=== PATIENT | male | born 1960 | race Caucasian/White ===

== ENCOUNTER 2017-02-22 11:34 | Inpatient (IN) | payer MEDICARE ==
[~2017-02-22] VITALS: Ht 177.8 cm; Wt 87.3 kg
[2017-02-22] MEDS: IV NORMAL SALINE 1,000ML 1,000 ML IV SCH ×3 (11:47→19:53)
[2017-02-22] MEDS ORDERED: IV NORMAL SALINE 1,000ML 1,000 ML ONE (11:49)
--- NOTE | 2017-02-22 11:59 | PHYS DOC ---
General Chief Complaint: FEVER Stated Complaint: FEVER, GENERAL BODYACHES Time Seen by MD: 11:47 Source: patient, [facility] Exam Limitations: no limitations Problems: History of Present Illness Initial Comments Pt is 56/M to ED for fever/myalgias. Pt sent EMS from [facility] for myalgias and fever which apparently began this am. Pt has h/o metastatic colon cancer/melanoma, h/o craniotomy s/p subdural hematoma. Pt complains of "whole body pain", his pain med regimen recently cut in half, no cough/sob/n/v or other focal complaints. Pt cries out in pain each time you touch him, especially the LUE (shoulder films pending). No H/P or med list to ED with pt, very little known of him records requested from [facility]. Tachycardic (120's) and febrile 101.9 on arrival, other VSS. No prearrival treatment. Timing/Duration: 1 hour Severity: moderate Modifying Factors: improves with other Associated Symptoms: fever/chills, other Allergies: Coded Allergies: adhesive tape (Verified Allergy, Unknown, 02/22/17) ampicillin (Verified Allergy, Unknown, 02/22/17) atorvastatin (Verified Allergy, Unknown, 02/22/17) cephalexin (Verified Allergy, Unknown, 02/22/17) fentanyl (Verified Allergy, Unknown, 02/22/17) latex (Verified Allergy, Unknown, 02/22/17) Past Medical History Medical History: other (malignant melanoma scalp stage IV, COPD, RACHAEL, s/p traumatic BKA, Stage III colon CA, chronic left elbow pain, PVD, subdural hematoma s/p craniotomy, chronic back pain, pseudogout left elbow) Surgical History: other (traumatic L BKA, appy, back surgery x 3, right hallux amputation) Social History Smoker: cigarettes, less than 1 pack/day Alcohol: occasionally Drugs: none Review of Systems Constitutional: see HPI Respiratory: denies cough, denies shortness of breath, denies wheezing Cardiovascular: denies chest pain, denies palpitations, denies syncope Gastrointestinal: denies abdominal pain, denies diarrhea, denies nausea, denies vomiting Musculoskeletal: see HPI, denies joint swelling, denies muscle stiffness Psychiatric/Neurological: denies headache, denies numbness, denies paresthesia , denies weakness Physical Exam General Appearance: WD/WN, mild distress Eyes: bilateral eye normal inspection, bilateral eye PERRL, bilateral eye EOMI Ear, Nose, Throat: hearing grossly normal, normal ENT inspection, normal pharynx Neck: non-tender, supple Respiratory: chest non-tender, other (coarse BS b/l no resp distress) Cardiovascular: normal peripheral pulses, tachycardia Gastrointestinal: soft (ND, BS diminished no focal TTP or distension) Back: no CVA tenderness, no vertebral tenderness Extremities: other (L BKA, R hallux amputations, no active skin infections, L elbow TTP and swelling no erythema/warmth or pain with passive ROM) 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 PHYSICIAN: DARRELL CARDENAS DO REASON: pain PROCEDURE: SHOULDER 2+V LEFT Left shoulder, 3 views, 02/22/2017: History: Left shoulder pain No acute fracture or dislocation is identified. There are mild degenerative changes at the acromioclavicular joint. There is a tiny soft tissue calcification at that level. IMPRESSION: 1. Mild degenerative change at the left AC joint. 2. No acute bony abnormality is detected. DICTATED AND SIGNED BY: ANN MARIE NORTON MD DATE: 02/22/171224 CC: DARRELL CARDENAS DO ~ PATIENT: ANDREA MONTILLA ACCOUNT: [id number] : 1960 LOCATION: ER AGE: 56 SEX: M EXAM STATUS: PRE ER ORD. PHYSICIAN: DARRELL CARDENAS DO REASON: fever PROCEDURE: PORTABLE CHEST 1V Portable chest, 02/22/2017: History: Fever, bodyaches No previous chest radiographs are available at this time for comparison purposes. A right Port-A-Cath extends into the superior vena cava. The heart size and pulmonary vascularity are normal. No pulmonary infiltrate is seen. There is no evidence of pleural fluid. Mild spurring is present in the spine. Periarticular calcifications adjacent to the distal right clavicle are probably secondary to old trauma. IMPRESSION: Normal 1. A Port-A-Cath is in place in satisfactory position. 2. No acute cardiopulmonary abnormality is detected. DICTATED AND SIGNED BY: ANN MARIE NORTON MD DATE: 02/22/17 1223 CC: DARRELL CARDENAS DO ~ PATIENT: ANDREA MONTILLA ACCOUNT: [id number] : 1960 LOCATION: ER AGE: 56 SEX: M EXAM STATUS: REG ER ORD. PHYSICIAN: DARRELL CARDENAS DO REASON: pain/swelling PROCEDURE: ELBOW BILAT 2V Bilateral elbows, 02/22/2017: History: Pain The exam is compromised by poor patient positioning related to the patient's inability to cooperate. There are degenerative changes at the right elbow joint. There appear to be small loose bodies in the joint anteriorly. No acute right elbow fracture or dislocation is evident. There is marked deformity of the the left elbow. This appears to represent an old nonunited fracture of the distal humerus. A distal humeral fracture involving the capitellum articulates with the radial head. It is displaced relative to the remainder of the distal humerus which partially articulates with the proximal ulna. The appearance is that of an old fracture/dislocation. There is also mild deformity of the radial head with spurring. No acute fracture is seen. IMPRESSION: 1. Suboptimal exam. 2. 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 3. Degenerative change at the right elbow joint with small loose bodies in the joint. DICTATED AND SIGNED BY: ANN MARIE NORTON MD DATE: 02/22/17 1647 CC: CAROLYNE PARR MD; DARRELL CARDENAS DO ~ 1658: Awaiting H/P fax from [place], prolonged ED course. d-dimer 3.76 (mets), INR 1.2, glu 68, t. bili 1.9, albumin 2.6, UA 80 ket, rapid strep and influenza A/B negative. Fever resolved with tylenol x 1, vancomycin IV and NS boluses given. HR persistently elevated despite hydration. Pt denies new or progressive symptoms thru ED course. Records from [facility] reviewed. Functional IV for meds established, all attempts to establish line for CTA result in blown vessel. I discussed pt with Dr Espinosa who requests meropenem added to vanco, additionally requests echo/dopplers. IMPRESSIONS: Febrile Illness NOS Metastatic Disease Sinus tachycardia (sepsis ruled out, need to r/o PE) Departure Disposition: ADMITTED INPATIENT Diagnosis: febrile illness, metastatic disease, Condition: GUARDED Additional Instructions: Telemetry admission Dr Espinosa is accepting. DARRELL CARDENAS DO February 22, 2017 11:59
[2017-02-22] MEDS ORDERED: PIPERACILLIN/TAZOBACTAM 4.5 GM in IV NORMAL SALINE 50ML 50 ML IV ONE (12:00)
[2017-02-22] MEDS ORDERED: 0.9 % SODIUM CHLORIDE 10 ML DISP.SYRIN. IV PRN (12:00)
[2017-02-22] MEDS ORDERED: ACETAMINOPHEN 500 MG TABLET PO ONE (12:25)
[2017-02-22] MEDS: MORPHINE SULFATE 4 MG/ML DISP.SYRIN. IV/SQ PRN ×3 (12:27→17:22)
--- NOTE | 2017-02-22 12:27 | RAD ---
Portable chest, 02/22/2017: History: Fever, bodyaches No previous chest radiographs are available at this time for comparison purposes. A right Port-A-Cath extends into the superior vena cava. The heart size and pulmonary vascularity are normal. No pulmonary infiltrate is seen. There is no evidence of pleural fluid. Mild spurring is present in the spine. Periarticular calcifications adjacent to the distal right clavicle are probably secondary to old trauma. IMPRESSION: Normal 1. A Port-A-Cath is in place in satisfactory position. 2. No acute cardiopulmonary abnormality is detected.
--- NOTE | 2017-02-22 12:28 | RAD ---
Left shoulder, 3 views, 02/22/2017: History: Left shoulder pain No acute fracture or dislocation is identified. There are mild degenerative changes at the acromioclavicular joint. There is a tiny soft tissue calcification at that level. IMPRESSION: 1. Mild degenerative change at the left AC joint. 2. No acute bony abnormality is detected.
[2017-02-22 12:29] LABS: BASO # 0.1 x10^3/uL (0.0-0.2); BASO % 1 % (0-3); EOS # 0.1 x10^3/uL (0.0-0.7); EOS % 1 % (0-3); HEMATOCRIT 40.8 % (39.0-53.0); HEMOGLOBIN 13.9 g/dL (13.0-17.5); LYMPH # 1.5 x10^3/uL (1.0-4.8); LYMPH % 18 % (24-48); MEAN CORPUSCULAR HEMOGLOBIN 32 pg (25-35); MEAN CORPUSCULAR HGB CONC 34 g/dL (31-37); MEAN CORPUSCULAR VOLUME 93 fL (79-100); MONO # 1.4 x10^3/uL (0.0-1.1); MONO % 16 % (0-9); NEUT # 5.5 x10^3uL (1.8-7.7); NEUT % 65 % (31-73); PLATELET COUNT 348 x10^3/uL (140-400); RED BLOOD COUNT 4.39 x10^6/uL (4.30-5.70); RED CELL DISTRIBUTION WIDTH 14.5 % (11.5-14.5); WHITE BLOOD COUNT 8.5 x10^3/uL (4.0-11.0)
[2017-02-22] MEDS ORDERED: NOREPINEPHRINE BITARTRATE 8 MG in IV DEXTROSE 5% 250 ML IV PRN (12:30)
[2017-02-22 12:46] LABS: ALBUMIN 2.6 g/dL (3.4-5.0); ALBUMIN/GLOBULIN RATIO 0.5 (1.0-1.7); CALCIUM 9.7 mg/dL (8.5-10.1); CREATININE 0.9 mg/dL (0.7-1.3); GFR 86.7; POTASSIUM 4.4 mmol/L (3.5-5.1); TOTAL BILIRUBIN 1.9 mg/dL (0.2-1.0); TOTAL PROTEIN 7.5 g/dL (6.4-8.2)
[2017-02-22] MEDS: VANCOMYCIN PER PHARMACY MC PRN ×2 (12:46→20:02)
[2017-02-22] MEDS ORDERED: VANCOMYCIN 2 GM in IV NORMAL SALINE 500ML 500 ML IV ONE (13:00)
--- NOTE | 2017-02-22 13:56 | EKG ---
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
[2017-02-22 13:57] LABS: AMORPHOUS SEDIMENT,UR PRESENT /HPF; BACTERIA,URINE 0 /HPF (0-FEW); BILIRUBIN,URINE SMALL (NEG); CLARITY,URINE CLEAR; COLOR,URINE YELLOW; GLUCOSE,URINE NEG (NEG); HYALINE CASTS, URINE MOD /HPF; NITRITE,URINE NEG (NEG); RBC,URINE 0 /HPF (0-2); SQUAMOUS EPITHELIAL CELL,UR OCC /LPF; UROBILINOGEN,URINE 1 mg/dL (0.2 mg/dL); WBC,URINE RARE /HPF (0-4)
[2017-02-22 14:02] LABS: INFLUENZA A PATIENT NEGATIVE (NEGATIVE); INFLUENZA B PATIENT NEGATIVE (NEGATIVE)
[2017-02-22] MEDS ORDERED: CONTRAST GIVEN MC PRN (14:15)
[2017-02-22] MEDS ORDERED: IOHEXOL 300 MG/ML 75 ML VIAL. IV ONE (14:15)
--- NOTE | 2017-02-22 15:53 | RAD ---
Indication change in mental status. History of prostate malignancy. Noncontrast images of the head were obtained. No prior imaging of the head is available. No acute calvarial finding is seen. Changes of a right craniotomy are noted. The visualized paranasal sinuses appear unremarkable. There is no subdural or epidural hematoma. Ventricles and sulci are within normal limits. There is no mass or midline shift. No hemorrhage is seen. No acute intracranial finding is apparent. There is a small lucency, probably reflecting microvascular disease, in the left deep white matter just adjacent to the anterior horn of the lateral ventricle. IMPRESSION: No acute or significant finding seen on noncontrast CT images of the head PQRS Compliance Statement: One or more of the following individualized dose reduction techniques were utilized for this examination: 1. Automated exposure control 2. Adjustment of the mA and/or kV according to patient size 3. Use of iterative reconstruction technique
--- NOTE | 2017-02-22 16:54 | RAD ---
Bilateral elbows, 02/22/2017: History: Pain The exam is compromised by poor patient positioning related to the patient's inability to cooperate. There are degenerative changes at the right elbow joint. There appear to be small loose bodies in the joint anteriorly. No acute right elbow fracture or dislocation is evident. There is marked deformity of the the left elbow. This appears to represent an old nonunited fracture of the distal humerus. A distal humeral fracture involving the capitellum articulates with the radial head. It is displaced relative to the remainder of the distal humerus which partially articulates with the proximal ulna. The appearance is that of an old fracture/dislocation. There is also mild deformity of the radial head with spurring. No acute fracture is seen. IMPRESSION: 1. Suboptimal exam. 2. 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 3. Degenerative change at the right elbow joint with small loose bodies in the joint.
[2017-02-22] MEDS ORDERED: IV NORMAL SALINE 1,000ML 1,000 ML IV SCH ×2 (17:00→18:00)
[2017-02-22] MEDS ORDERED: ACETAMINOPHEN 325 MG TABLET PO PRN ×2 (17:45→18:45)
[2017-02-22] MEDS ORDERED: ONDANSETRON PF 4 MG/2 ML VIAL. IV PRN ×2 (17:45→18:45)
[2017-02-22] MEDS ORDERED: IV NORMAL SALINE 250ML 250 ML ONE (18:57)
--- NOTE | 2017-02-22 19:09 | ACF ---
Admission Criteria Forms TELEMETRY CARE Telemetry Admission Guidelines (Place 'X' for any and all applicable criteria): Admission to telemetry [A] may be indicated for ANY ONE of the following(1)(2)(3 )(4)(5): [X]I. Cardiac disease, including ANY ONE of the following (9)(10)(11)(12)(13 ): [ ]a) Postacute VA [ ]b) Low-risk patients with ST-segment elevation VA who have undergone successful percutaneous coronary intervention [ ]c) Unstable angina [ ]d) Suspected VA (until it is ruled out) [ ]e) Post cardiac surgery (first 48 to 72 hours unless complications occur) [X]f) Acute arrhythmias (including significant tachycardia or bradycardia) [B] [ ]g) Firing of an implantable cardioverter defibrillator [C] [ ]h) Suspected pacemaker or implantable cardioverter defibrillator malfunction (10) [ ]i) New administration or adjustment of an antiarrhythmic drug [D ] [ ]j) Child admitted for acute congestive heart failure [ ]j) Long QT syndrome [ ]k) Advanced heart block (eg, second-degree Mobitz type II, third- degree heart block) [ ]l) Acute myocarditis or pericarditis [ ]m) Short-term (ambulatory or inpatient) monitoring after a cardiac procedure as indicated by ANY ONE of the following [E]: [ ]i) Electrophysiologic studies [ ]ii) Percutaneous coronary intervention with stent placement [ ]iii) Pacemaker placement with cardiac conduction defect [ ]iv) Implantable cardiac defibrillator placement [ ]II. Drug overdose or poisoning with substance that causes arrhythmias or QT prolongation (eg, phenothiazines, sympathomimetic agents, cyclic antidepressants, digitalis, antiarrhythmic drugs)(15) [ ]III. Short-term (ambulatory or inpatient) monitoring after therapeutic or diagnostic procedure requiring conscious sedation or anesthesia (eg, endoscopy, elective cardioversion) [ ]IV. Acute cerebrovascular even[F](18) [ ]V. Massive blood transfusion (eg, at least 10 units of packed red blood cells in 24 hours) [ ]. Variceal bleeding after endoscopy, sclerotherapy, or IV vasopressin [ ]VII. Uncorrected electrolyte abnormalities associated with an increased risk of dangerous arrhythmia [G]; examples include [ ]a) Hyperkalemia with attributable ECG changes [ ]b) Potassium greater than 6.5 mmol/L (mEq/L) in a patient without history of chronic renal disease [ ]c) Prolonged QT attributed to hypokalemia, hypomagnesemia, or hypocalcemia [ ]VIII.Unexplained syncope or other neurologic event suspected of being due to arrhythmia due to a finding that increases risk; examples include(19)(20)(21): [ ]a) High-risk ECG findings (eg, bifascicular block, bradycardia, abnormal QT interval, ventricular pre- excitation) [ ]b) History of previous syncope due to arrhythmia [ ]c) Abnormal ventricular function (eg, reduced ejection fraction ) [ ]d) Exertional or supine syncope [ ]e) Concerning syncope characteristics (eg, sudden loss of consciousness without prodrome) [ ]f) Family history of sudden [ ]g) Use of arrhythmogenic medication [ ]h) Suspected cardiac ischemia [ ]i) Known channelopathy (eg, long QT syndrome, Brugada syndrome, or catecholaminergic paroxysmal ventricular tachycardia) [ ]j) Known structural heart disease (eg, hypertrophic cardiomyopathy , severe valvular disease) [ ]k) Palpitations preceding syncope The original [employer] content created by [employer] has been revised. The portions of the content which have been revised are identified through the use of italic text or in bold, and [employer] has neither reviewed nor approved the modified material. All other unmodified content is copyright [employer]. Please see references footnoted in the original [employer] edition 2016 Admission Criteria Met?: Yes PASCUAL MARTINEZ February 22, 2017 19:09
[2017-02-22 19:39] VITALS: BP 114/61
--- NOTE | 2017-02-22 20:02 | NUR ---
Pharmacy Vancomycin Dosing Note S:Consulted to monitor and dose vancomycin started 02/22/17. O:ANDREA MONTILLA is a 56 year old M with Sepsis . Height: 5 feet, 10 inches Weight: 87.604225 kg [place] Body Weight: Adjusted Body Weight: Dosing Weight: Actual Other Antibiotics: MEROPENEM 1GRAM Q8HRS LABS: Last BUN: 14 Last Creatinine: 0.9 Creatinine Clearance: Last WBC: 8.5 Last Platelets: 348 Tmax (past 24 hours): Microbiology: I/O: Drug Levels: Last level: on at Last dose given 02/22/17 at 1300 Vancomycin Dosing: Loading Dose: 2000 mg x1 Dosing Weight: Actual Target Trough: 15-20 A: Based on: P: 1. Begin Vancomycin 1500 mg IV q12h 2. Follow up Trough level on 02/24/17 at 0030 3. Pharmacy will continue to monitor, follow and adjust therapy as needed. RAQUEL PRICE RPH, 02/22/172001
[2017-02-22] MEDS: IPRATRPIUM/ALBUTEROL 0.5/2.5MG 3 ML NEBU. NEB SCH (20:27)
[2017-02-22 20:55] VITALS: BP 107/65
[2017-02-22 21:55] VITALS: BP 121/64
[2017-02-22] MEDS: MEROPENEM 1 GM in IV NORMAL SALINE 100ML 100 ML IV SCH (22:41)
[2017-02-22 22:55] VITALS: BP 125/64
[2017-02-22] MEDS ORDERED: CHOL500016 PO (23:26)
[2017-02-22] MEDS ORDERED: FURO-69 PO (23:26)
[2017-02-22] MEDS ORDERED: DOCU-109 PO (23:26)
[2017-02-22] MEDS ORDERED: BUPR100T8 PO (23:26)
[2017-02-22] MEDS ORDERED: GABA-586 PO (23:26)
[2017-02-22] MEDS ORDERED: DOCUSATE SODIUM 100 MG CAPSULE PO PRN (23:30)
--- NOTE | 2017-02-22 23:36 | NUR ---
The patient, ANDREA MONTILLA, 56 y/o, M admitted by RAMY GARCIA MD, was given written information regarding hospital policies, unit procedures and contact persons. No valuables noted upon arrival to unit. Pt is calm and cooperative with staff, sleeping on and off but is able to answer some questions. Pt alert to self and situation. VSS at this time, placed on 2L NC due to O2 sats in low 90s. HR elevated in 115s. NS and ABT therapy ordered. Obtained blood cultures and access right chest port per Dr. Garcia. Port patent and flushed with 20cc of NS, good blood return noted. Denies complaints of pain or discomfort when asked, noted to yell out in pain when repositioning. Pt has Left elbow dislocation and possible cellulitis/septic bursitis per records from [facility]. Pt resting comfortably at this time, will continue to monitor.
[2017-02-22 23:55] VITALS: BP 135/77
[2017-02-23] VITALS (9 sets, daily range): BP systolic 104–147; BP diastolic 52–78
[2017-02-23] MEDS: MORPHINE SULFATE 2 MG/ML DISP.SYRIN. IV PRN ×4 (01:01→14:17)
[2017-02-23] MEDS: VANCOMYCIN 1.5 GM in IV NORMAL SALINE 500ML 500 ML IV SCH ×2 (01:03→13:20)
[2017-02-23] MEDS: IV NORMAL SALINE 1,000ML 1,000 ML IV SCH ×2 (01:03→09:05)
[2017-02-23] MEDS: MEROPENEM 1 GM in IV NORMAL SALINE 100ML 100 ML IV SCH ×2 (05:22→13:19)
--- NOTE | 2017-02-23 06:03 | NUR ---
Pt incontinent of urine, attempted to place sanchez catheter x3. Pt was in pain and requested to not have placement.
[2017-02-23] MEDS: IPRATRPIUM/ALBUTEROL 0.5/2.5MG 3 ML NEBU. NEB SCH ×2 (06:04→11:30)
[2017-02-23 06:20] LABS: BASO % 0 % (0-3); EOS # 0.1 x10^3/uL (0.0-0.7); EOS % 2 % (0-3); HEMATOCRIT 33.3 % (39.0-53.0); HEMOGLOBIN 11.3 g/dL (13.0-17.5); LYMPH % 14 % (24-48); MEAN CORPUSCULAR HEMOGLOBIN 32 pg (25-35); MEAN CORPUSCULAR HGB CONC 34 g/dL (31-37); MEAN CORPUSCULAR VOLUME 95 fL (79-100); MONO # 1.2 x10^3/uL (0.0-1.1); MONO % 17 % (0-9); NEUT # 4.6 x10^3uL (1.8-7.7); NEUT % 67 % (31-73); PLATELET COUNT 279 x10^3/uL (140-400); RED BLOOD COUNT 3.51 x10^6/uL (4.30-5.70); RED CELL DISTRIBUTION WIDTH 14.1 % (11.5-14.5); WHITE BLOOD COUNT 6.9 x10^3/uL (4.0-11.0)
[2017-02-23 06:32] LABS: ALBUMIN 2.1 g/dL (3.4-5.0); ALBUMIN/GLOBULIN RATIO 0.5 (1.0-1.7); CALCIUM 8.9 mg/dL (8.5-10.1); CREATININE 0.8 mg/dL (0.7-1.3); GFR 99.3; POTASSIUM 4.1 mmol/L (3.5-5.1); TOTAL BILIRUBIN 1.3 mg/dL (0.2-1.0); TOTAL PROTEIN 6.3 g/dL (6.4-8.2)
[2017-02-23] MEDS: buPROPion SR 100 MG TABLET.SA. PO SCH ×2 (08:32→13:19)
[2017-02-23] MEDS: GABAPENTIN 300 MG CAPSULE. PO SCH ×2 (08:32→13:19)
--- NOTE | 2017-02-23 08:40 | RAD ---
Indication shortness of breath. Elevated d-dimer. Contrast imaging through the chest was performed. The examination was to be tailored for the detection of pulmonary embolus. 75 cc of Omnipaque 300 was administered intravenously. MIP images were generated and reviewed. No prior CT imaging of the chest is available. The examination evaluating for pulmonary embolus is compromised. There is not optimal opacification of the pulmonary arteries and there is moderate respiratory motion. No definite pulmonary emboli are seen and certainly large central pulmonary emboli are not suggested on this study. Assessment of lobar, segmental and subsegmental branches for pulmonary emboli is very limited secondary to factors outlined above. There is generalized soft tissue swelling suggesting a systemic process such as anasarca. Significant hilar or mediastinal adenopathy is not seen. There is a dominant nodule measuring approximately 2 cm in greatest dimension associated with the left lobe of the thyroid. This could be further evaluated with ultrasound. An acute parenchymal infiltrate in either lung is not seen. There is a slightly irregular 1.3 cm nodule in the left upper lobe. Etiology is unclear. Primary malignancy is certainly not excluded accounting for the finding. Comparison with any old CT examinations, if available, should be considered. In the absence of prior CT examinations being available PET scanning or CT guided biopsy should be considered. Imaging through the upper abdomen is unremarkable. IMPRESSION: Limited study evaluating for pulmonary embolus. No large central pulmonary emboli seen. 1.3 cm soft tissue mass in the left upper lobe. The etiology is unclear. See above discussion. 2 cm nodule in the left lobe of the thyroid. Thyroid ultrasound should be considered. PQRS Compliance Statement: One or more of the following individualized dose reduction techniques were utilized for this examination: 1. Automated exposure control 2. Adjustment of the mA and/or kV according to patient size 3. Use of iterative reconstruction technique
[2017-02-23] MEDS ORDERED: FUROSEMIDE 20 MG TABLET PO SCH (09:00)
--- NOTE | 2017-02-23 13:03 | RAD ---
Indication elevated d-dimer. Grayscale color Doppler and spectral imaging was performed. Examination was targeted to the veins of the right lower extremity. The common femoral, femoral and popliteal vessels demonstrate normal flow compressibility and augmentation. No thrombus was seen. The visualized right calf veins appeared normal. The left common femoral vein appeared normal. IMPRESSION: Negative right lower extremity venous analysis for DVT
--- NOTE | 2017-02-23 13:48 | CARD ---
APPROVED REPORT EXAM: Two-dimensional and M-mode echocardiogram with Doppler and color Doppler. Other Information Quality : Good INDICATION Fever 2D DIMENSIONS Left Atrium(2D)3.7 (1.6-4.0cm)IVSd1.3 (0.7-1.1cm) Aortic Root(2D)2.8 (2.0-3.7cm)LVDd4.5 (3.9-5.9cm) LVOT Diameter2.3 (1.8-2.4cm)PWd1.1 (0.7-1.1cm) LVDs2.6 (2.5-4.0cm)FS (%) 30.0 % SV68.9 mlLVEF(%)60.0 (>50%) Aortic Valve AoV Peak Jerod.183.8cm/Nasima Peak GR.13.5mmHg LVOT Peak Jerod.163.1cm/sAVA (VMAX)3.82cm2 Mitral Valve MV E Gunljqvj82.8cm/sMV DECEL SAAB11cr MV A Xjgiwpir76.2cm/sE/A Ratio0.9 LEFT VENTRICLE The left ventricle is normal size. There is mild concentric left ventricular hypertrophy. The left ve ntricular systolic function is normal and the ejection fraction is within normal range. The Ejection Fraction is 60-65%. There is normal LV segmental wall motion. Transmitral Doppler flow pattern is Gra de I-abnormal relaxation pattern. RIGHT VENTRICLE The right ventricle is normal size. The right ventricular systolic function is normal. ATRIA The left atrium size is normal. The right atrium size is normal. The interatrial septum is intact wit h no evidence for an atrial septal defect or patent foramen ovale as noted on 2-D or Doppler imaging. AORTIC VALVE The aortic valve is normal in structure and function. Doppler and Color Flow revealed no significant aortic regurgitation. There is no significant aortic valvular stenosis. There is no aortic valvular v egetation. MITRAL VALVE The mitral valve is normal in structure and function. There is no evidence of mitral valve prolapse. There is no mitral valve stenosis. Doppler and Color Flow revealed no mitral valve regurgitation note d. TRICUSPID VALVE The tricuspid valve is normal in structure and function. Doppler and Color Flow revealed no tricuspid valve regurgitation noted. There is no tricuspid valve stenosis. PULMONIC VALVE Doppler and Color Flow revealed no pulmonic valvular regurgitation. There is no pulmonic valvular gucci nosis. GREAT VESSELS The aortic root is normal in size. The ascending aorta is not well seen. The IVC is normal in size an d collapses >50% with inspiration. PERICARDIAL EFFUSION There is no evidence of significant pericardial effusion. Critical Notification Critical Value: No <Conclusion> The left ventricular systolic function is normal and the ejection fraction is within normal range. Th e Ejection Fraction is 60-65%. There is normal LV segmental wall motion. Technically difficult study No clear valvular lesions noted.
--- NOTE | 2017-02-23 14:00 | NUR ---
PT transferring to .Waiting to give report to at this time. Marta notified. Mike WYNN
--- NOTE | 2017-02-23 14:47 | NUR ---
PT dc to [facility]. gave report to KINGSLEY maxwell verbalize understanding of transfer. PT left via [facility] via EMS. pillo WYNN
--- NOTE | 2017-02-23 19:10 | HP ---
ADMIT DATE: 02/22/2017 HISTORY OF PRESENT ILLNESS: This is a 56-year-old male patient, a resident at [facility], who was brought to the Emergency Room with a complaint of fever and generalized aches and pains and myalgias. He is crying out of pain each time he is touched, particularly his left upper extremity, mainly his shoulder. On arrival to the Emergency Room, he apparently was found to be febrile, although extensive investigation failed to reveal any focus of infection. His white cell count was normal. Chest x-ray was unremarkable and he is known to have a Port-A-Cath, so he was admitted for possible line-related sepsis versus left shoulder septic arthritis. He was somewhat hypotensive in the Emergency Room and was given about 3 liters of fluid and continued on IV fluids on arrival to the ICU. He was pancultured and started on empiric antibiotic in the form of vancomycin as well as meropenem as he is allergic to penicillin. PAST MEDICAL HISTORY: Significant for stage 4 malignant melanoma diagnosed of the scalp and has been receiving chemotherapy for that. He has also stage 3 colon cancer, chronic obstructive pulmonary disease, obstructive sleep apnea. He is status post traumatic [id number] amputation. He has chronic left elbow pain, peripheral vascular disease, subdural hematoma, status post craniotomy, he has chronic back pain, and pseudogout on the left elbow. PAST SURGICAL HISTORY: He has traumatic [id number] amputation, appendectomy, back surgery x 3 and right hallux amputation. FAMILY HISTORY: Unremarkable. SOCIAL HISTORY: He is a resident at [facility]. He smokes at least 1 pack a day. He drinks alcohol occasionally. He does not use any drugs. REVIEW OF SYSTEMS: As per history of present illness, his complaint is mainly generalized aches and pains, in particular in his left shoulder and he was febrile ALLERGIES: He is allergic to ADHESIVE TAPE, AMPICILLIN, ATORVASTATIN, CEPHALEXIN, FENTANYL, and LATEX. MEDICATIONS: He was on the following medications: He is on Wellbutrin 100 mg 3 times a day, cholecalciferol, vitamin D 10,000 international units p.o. weekly. He is on Colace 200 mg once a day, furosemide 20 mg once a day, gabapentin 300 mg 3 times a day. PHYSICAL EXAMINATION: GENERAL: On arrival to the Emergency Room, he was somewhat pale, but no jaundice, cyanosis, or thyromegaly. No jugular venous distension. No lower limb edema. VITAL SIGNS: His heart rate was 121, blood pressure was 95/60, temperature was 102, respiratory rate was 22 and oxygen saturation was 91% on room air. HEAD, EYES, EARS, NOSE AND THROAT: Showed normocephalic, atraumatic. NECK: Supple. HEART: Showed normal first and second heart sounds with no gallop, rub or murmur. CHEST: Clear to auscultation. No crepitation or rhonchi. ABDOMEN: Distended, soft, nontender. No guarding or rigidity. No organomegaly. All hernial orifices are intact. Bowel sounds are normal. NEUROLOGIC: He is awake, alert, responding appropriately. Cranial nerves are intact. EXTREMITIES: He moves all extremities without difficulty. He is mostly bedbound, chair bound. He has [id number] amputation. LABORATORY DATA: On initial evaluation showed that his white cell count was 8500, hemoglobin 13.9, hematocrit 40, MCV 93, and platelet count of 348,000 with a manual differential showed 65% polymorphs, 18% lymphocytes, and 16% monocytes. His sedimentation rate was high at 117 mm per hour. His chemistry showed a serum sodium of 134, potassium 4.4, chloride 95, bicarbonate 25, anion gap of 14, BUN 14, creatinine 0.9, estimated GFR was 86 mL per minute. His glucose was 68, calcium was 9.7. Total bilirubin was 1.9. AST, ALT, alkaline phosphatase were normal. His CK was only 53, total protein was 7.5, albumin 2.6. Lipase was 85. His prothrombin time was 12.5, INR of 1.2, APTT 31 and D-dimer was 3.76. Urinalysis was essentially unremarkable. The urine was yellow, clear with a pH of 5, specific gravity of 1.015. The urine was negative for protein and glucose. There was trace of ketones, trace of blood, negative for nitrite and negative for leukocyte esterase. There was 0 WBCs, 0 RBCs and no bacteria. His influenza A and B were negative and his rapid group A Streptococcus antigens were negative. IMAGING: He had multiple images including a chest x-ray, which showed that his Port-A-Cath is in place in satisfactory position, no acute cardiopulmonary abnormalities detected. His right shoulder x-ray showed that he has mild degenerative changes of the left acromioclavicular joint. No acute bony abnormalities detected. CT scan of the head also showed no acute or significant findings seen on this noncontrast CT images of the head. 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 Given that his D-dimer was high, he underwent CT angiography of the chest, which showed a limited study evaluating for pulmonary embolism. There were no large central pulmonary emboli seen. There was 1.3 cm soft tissue mass in the left upper lobe, the etiology is unclear. He has 2 cm nodule in the left lobe of the thyroid gland. ASSESSMENT AND PLAN: The patient was admitted to the ICU, was continued with IV fluid and after obtaining the appropriate cultures, we will start him on IV vancomycin as well as meropenem. We will decide on further management accordingly. He did have a Doppler ultrasound of his right lower extremity, which showed that it was negative for DVT. RAMY GARCIA MD DR: IVY/lizet JOB#: [id number] / [id number]
--- NOTE | 2017-02-24 00:28 | DS ---
DATE OF DISCHARGE: 02/23/2017 HOSPITAL COURSE: The patient is a 56-year-old male patient who was residing at [facility] in [place] and was admitted yesterday with fever, generalized aches and pains. Pain is mostly in his left shoulder. He was extensively investigated and all his chest x-ray and urinalysis are unremarkable. His blood culture so far was negative and he has no evidence of DVT or pulmonary embolism; however, he has been followed by the Oncology team as he is known to have stage 4 scalp malignant melanoma as well as stage 3 colon cancer and I did contact the Transfer Center at [facility] and the oncologist transportation maintenance worker accepted the transfer for further evaluation and treatment. OBJECTIVE: GENERAL: When I examined him this afternoon, he was resting slightly propped up in bed, in no apparent distress. He stated that morphine is helping his pain. When I examined him, he looked pale, but no jaundice, cyanosis, or thyromegaly. No jugular venous distension. No lower limb edema. VITAL SIGNS: His heart rate was 101, blood pressure 142/78, temperature was 97.9, respiratory rate was 20, and oxygen saturation was 96% with 2 liters of oxygen. HEAD, EYES, EARS, NOSE AND THROAT: Showed normocephalic, atraumatic. NECK: Supple. HEART: Showed normal first and second heart sounds with no gallop, rub or murmur. CHEST: Clear to auscultation. No crepitation or rhonchi. ABDOMEN: Distended, soft, nontender. No guarding or rigidity. No organomegaly. All hernial orifices intact. Bowel sounds normal. NEUROLOGIC: He was awake, alert, responding appropriately. Cranial nerves intact. He moves his upper extremities without difficulty. He has a left below knee amputation. He is mostly bedbound and chair bound. His intake over the last 24 hours was 3850, output was 936. LABORATORY DATA: This morning showed a serum sodium to be 138, potassium 4.1, chloride 102, bicarbonate 24, anion gap of 12, BUN 12, creatinine 0.8, estimated GFR was 99 mL per minute. His glucose was 66. Calcium was 8.9. Total bilirubin was 1.3. AST, ALT, alkaline phosphatase were normal. His total protein was 6.3, albumin 2.1. His TSH was extremely low at 0.261. His white cell count today was 6900, hemoglobin 11.3, hematocrit 33.3, MCV 95 and platelet count 279,000. His prothrombin time was 12.5, INR 1.2, APTT 31 and D-dimer was 3.76. DISCHARGE MEDICATIONS: He will be discharged to [facility] to continue on vitamin D 10,000 units once a week, gabapentin 300 mg 3 times a day, furosemide 20 mg p.o. daily, Wellbutrin 100 mg 3 times a day, vancomycin 1.5 grams twice a day, Colace 200 mg as needed, meropenem 1 gram IV q. 8 hourly, albuterol and ipratropium 4 times a day, ondansetron 4 mg every 8 hours, acetaminophen 650 mg every 4 hours. FINAL DISCHARGE DIAGNOSES: Sepsis without obvious source. The patient has severe pain in his left shoulder with septic arthritis, difficult to know, his x-rays was unrevealing. He has stage 4 scalp malignant melanoma, stage 3 colon cancer. He has recent pseudogout of his left elbow, traumatic left below knee amputation, peripheral vascular disease, subdural hematoma status post craniotomy, chronic low back pain. RAMY GARCIA MD DR: IVY/lizet JOB#: [id number] / [id number]
[2017-03-01] MEDS ORDERED: CHOLECALCIFEROL (VITAMIN D3) 1,000 UNIT TABLET PO SCH (09:00)
== END 2017-02-23 14:52 | disposition short-term general hospital (02) | DRG 871 ==
LOC: ER 11:34 → ICU 17:47
PROVIDERS: ADMIT Internal Medicine; ATTEND Internal Medicine
DX: A41.9 Sepsis, unspecified organism (principal); E43 Unspecified severe protein-calorie malnutrition; M00.9 Pyogenic arthritis, unspecified; C18.9 Malignant neoplasm of colon, unspecified; C43.9 Malignant melanoma of skin, unspecified; F17.210 Nicotine dependence, cigarettes, uncomplicated; G47.33 Obstructive sleep apnea (adult) (pediatric); I73.9 Peripheral vascular disease, unspecified; J44.9 Chronic obstructive pulmonary disease, unspecified; M54.5 Low back pain; G89.29 Other chronic pain; M11.222 Other chondrocalcinosis, left elbow; Z89.512 Acquired absence of left leg below knee; Z88.0 Allergy status to penicillin; Z88.6 Allergy status to analgesic agent; Z91.040 Latex allergy status; Z88.8 Allergy status to other drugs, medicaments and biological substances; Z91.048 Other nonmedicinal substance allergy status; Z98.890 Other specified postprocedural states; Z90.49 Acquired absence of other specified parts of digestive tract; Z74.01 Bed confinement status
CPT/HCPCS: 36415; 51701; 70450; 71010; 71275; 73030; 73070; 80053; 81001; 82550; 83605; 83690; 83880; 84443; 84484; 84550; 85027; 85379; 85610; 85651; 85730; 86140; 87040; 87070; 87641; 87804; 87880; 93005; 93306; 93971; 94640; 96361; 96365; 96366; 96375; 96376; J2185; J2270; J3370; J7040; J7620; 99285-25; J7030

== ENCOUNTER → 2017-04-09 | Outpatient (CLI) | payer MEDICARE, MEDICAID ==
[2017-02-23 12:02] VITALS: BP 142/78
[~2017-04-09] MED LIST: BUPR100T8 PO; CHOL500016 PO; DOCU-109 PO; FURO-69 PO; GABA-586 PO
--- NOTE | 2017-04-09 18:18 | RAD ---
Ultrasound right lower extremity Indication: RT LEG PAIN

US IMPRESSION: NEGATIVE DVT RT LEG Technique: Multiple real-time grayscale images were obtained over the right lower extremity with use of color Doppler imaging. Static images were submitted for interpretation. Findings: There is no evidence for deep venous thrombosis. There is normal color fill-in on Doppler images. There is also normal response to compression and augmentation deep venous system. Spectral analysis is within normal limits. No evidence for mass or fluid collection. Impression: No evidence for deep venous thrombosis in the right lower extremity. Electronically signed by: Chris Villarreal MD (04/09/2017 6:15 PM) [facility]
== END | disposition home or self-care (01) ==
LOC: RAD 17:03
PROVIDERS: ATTEND Family Medicine
DX: M79.604 Pain in right leg (principal)
CPT/HCPCS: 93971